=== PATIENT | male | born 2000 ===

== ENCOUNTER 2021-06-20 07:50 | Emergency (ER) | payer OTHER ==
[~2021-06-20] VITALS: Ht 177.8 cm; Wt 76.2 kg
[2021-06-20 07:52] VITALS: BP 132/85
[2021-06-20] MEDS ORDERED: IBUPROFEN 800 MG (MOTRIN) TAB PO STA (08:01)
[2021-06-20] MEDS ORDERED: LIDOCAINE 1% INJ 20 ML VIAL INJ STA (08:02)
--- NOTE | 2021-06-20 08:08 | ED Upper Extremity ---
General Chief Complaint: Laceration Stated Complaint: LT HAND INJ Source: patient Exam Limitations: no limitations History of Present Illness Date Seen by Provider: Jun 20, 2021 Time Seen by Provider: 07:53 Initial Comments 21 yo male presenting with complaint of injury to left forearm. he was using a jointer and got his sleeve caught as he was advancing a board. he has laceration to his wrist area with blood along his arm. He has intact movement and sensation to fingers and wrist. He is right hand dominant. He had his last tetanus when he was in high school. he has a history of migraine headaches and is prescribed Propranolol for those but takes it only as needed. He denies other injuries. Onset: just prior to arrival Severity: moderate Pain/Injury Location: left forearm, left wrist Method of Injury: other (caught in equipment) Modifying Factors: Worse With Movement Allergies and Home Medications Allergies Coded Allergies: Penicillins (Verified Allergy, Unknown, 06/20/21) Per family history Patient Home Medication List Home Medication List Reviewed: Yes Clindamycin HCl (Clindamycin HCl) 300 Mg Capsule, 300 MG PO TID Prescribed by: FAUSTINO RHODES on 06/20/21 0921 Review of Systems Constitutional: no symptoms reported EENTM: no symptoms reported Respiratory: no symptoms reported Cardiovascular: no symptoms reported Gastrointestinal: no symptoms reported Genitourinary: no symptoms reported Musculoskeletal: see HPI Skin: see HPI, other (laceration to left wrist) Psychiatric/Neurological: Denies Numbness, Denies Paresthesia, Denies Weakness Past Wygbxtn-Uxecyd-Zwybbv Hx Patient Social History Tobacco Use?: No Use of E-Cig and/or Vaping dev: No Substance use?: No Alcohol Use?: No Past Medical History Surgery/Hospitalization HX: Migraine Headaches Physical Exam Vital Signs Vital Signs - First Documented 06/20/21 07:52 Temp 36.6 Pulse 73 Resp 18 B/P (MAP) 132/85 (101) Pulse Ox 100 O2 Delivery Room Air Capillary Refill : Height, Weight, BMI Height: '" Weight: lbs. oz. kg; BMI Method: General Appearance: WD/WN, no apparent distress HEENT: PERRL/EOMI Cardiovascular: normal peripheral pulses Elbow/Forearm: normal ROM, Left, pain (around laceration), soft tissue tenderness (around laceration) Wrist: Yes normal ROM, Yes soft tissue tenderness Hand: normal inspection, non-tender, normal ROM Neurologic/Tendon: normal sensation, normal motor functions, normal tendon functions Neurologic/Psychiatric: no motor/sensory deficits, alert, normal mood/affect, oriented x 3 Skin: warm/dry, other (avulsion/laceration left wrist ulnar aspect) Procedures/Interventions Wound Location: Upper Extremities (left wrist) Wound Length (cm): 4.3 Wound's Depth, Shape: irregular, contused tissue, sub Q Wound Explored: contaminated Irrigated w/ Saline (ccs): 500 Betadine Prep?: Yes Anesthesia: 1% Lidocaine Volume Anesthetic (ccs): 6 Suture: Ethlion Suture Size: 4-0 Number of Sutures: 5 Layer Closure?: 1 Sterile Dressing Applied?: Yes Progress After obtaining verbal informed consent from the patient the wound was anesthetized with 1% plain lidocaine. Then using sterile water and Betadine the wound was irrigated and flushed. No foreign bodies were seen. Using 4-0 Ethilon the wound edges for approximated with 5 simple interrupted stitches. Patient tolerated procedure well without any immediate complication. Counseled on follow-up and return precautions. Will treat with clindamycin for antibiotic prophylaxis. Counseled on suture removal in 10 to 14 days. Clean dry dressing was applied with Javi bandage for pressure dressing. Wound Location: Upper Extremities (Left wrist/forearm) Wound Length (cm): 1.6 Wound's Depth, Shape: flap, sub Q Wound Explored: clean Irrigated w/ Saline (ccs): 500 Betadine Prep?: Yes Anesthesia: 1% Lidocaine Volume Anesthetic (ccs): 2 Suture: Ethlion Suture Size: 4-0 Number of Sutures: 3 Layer Closure?: 1 Sterile Dressing Applied?: Yes Progress After obtaining verbal informed consent from the patient the wound was anes thetized with 1% plain lidocaine. Then using sterile water and Betadine the wound was irrigated. There was no foreign body seen or visualized. The wound edges were approximated using 4-0 Ethilon. There were a total of 3 simple interrupted stitches placed with a 4-0 Ethilon. Patient tolerated procedure well without any immediate complication. Applied clean dry sterile dressing. Counseled on follow-up and return precautions. Advised to have stitches out in 10 to 14 days would be seen sooner if concern for infections. Treat with clindamycin for antibiotic prophylaxis. Wound Location: Upper Extremities (Left wrist and forearm) Wound Length (cm): 2.2 Wound's Depth, Shape: flap, contused tissue, sub Q Wound Explored: contaminated Irrigated w/ Saline (ccs): 500 Betadine Prep?: Yes Anesthesia: 1% Lidocaine Volume Anesthetic (ccs): 4 Suture: Ethlion Suture Size: 4-0 Number of Sutures: 4 Layer Closure?: 1 Sterile Dressing Applied?: Yes Progress After obtaining verbal informed consent from the patient the wound was anesthetized with 1% plain lidocaine. Then using sterile water and Betadine the wound was irrigated. There was no foreign body seen or visualized. The wound edges were approximated using 4-0 Ethilon. There were a total of 4 simple interrupted stitches placed with a 4-0 Ethilon. Patient tolerated procedure well without any immediate complication. Applied clean dry sterile dressing. Counseled on follow-up and return precautions. Advised to have stitches out in 10 to 14 days would be seen sooner if concern for infections. Treat with clindamycin for antibiotic prophylaxis. Progress/Results/Core Measures Results/Orders My Orders Orders - FAUSTINO RHODES MD Ibuprofen Tablet (Motrin Tablet) (06/20/21 08:01) Forearm 2 View Left (06/20/21 08:01) Lidocaine 1% Inj 20 Ml (Xylocaine 1% Inj (06/20/21 08:02) Suture Set At Bedside (06/20/21 08:02) Wound Dressing-Ed (06/20/21 08:02) Lidocaine 1% Inj 50 Ml (Xylocaine 1% Inj (06/20/21 08:19) Medications Given in ED Current Medications Medications Dose Ordered Sig/Claudia Route Start Time Stop Time Status Last Admin Dose Admin Lidocaine HCl 50 ml STK-MED ONCE .ROUTE 06/20/21 08:19 06/20/21 08:22 DC 06/20/21 08:24 50 ML Vital Signs/I&O 06/20/21 07:52 Temp 36.6 Pulse 73 Resp 18 B/P (MAP) 132/85 (101) Pulse Ox 100 O2 Delivery Room Air Progress Progress Note #1: Progress Note Order Ibuprofen for pain and inflammation. Clean wound and order xrays to check for bony injury or foreign body. Will clean wound and use lidocaine to help numb the wound and then use stitches to help repair the tissue. Progress Note #2: Progress Note No obvious fracture or foreign body seen on the x-rays. Wound was anesthetized with 1% plain lidocaine and then cleaned with Betadine and sterile water. Using 4-0 Ethilon the wound edges were approximated with a total of 12 simple interrupted stitches. Patient tolerated procedure well without any immediate complication. Since this does involve his jacket and possible foreign body material in the wound will cover with clindamycin antibiotic for prophylactic coverage. Patient states he is up-to-date on his tetanus booster. Counseled on using acetaminophen and ibuprofen if needed for pain. Suture removal in 10 to 14 days or be seen sooner if having concerns for possible infection. Diagnostic Imaging Diagonstic Imaging: Xray Plain Films/CT/US/NM/MRI: forearm Comments [facility] [place] NAME: BRYAN CABEZAS [facility] REC#: [id number] PT STATUS: REG ER : 2000 PHYSICIAN: FAUSTINO RHODES MD ADMIT DATE: 06/20/21/ER FS Draft Date of Exam:06/20/21 FOREARM 2 VIEW LEFT Indication: Left wrist injury and laceration. Time of Exam: 8:11 AM Two views of the left forearm were obtained. Alignment at the elbow and wrist is normal. There appears to be a soft tissue injury along the ulnar side of the wrist. No definite radiopaque soft tissue foreign body is seen. No acute bony abnormality is detected. IMPRESSION: Soft tissue injury of the wrist. No radiopaque foreign body or acute bony abnormality is detected. Dictated on workstation # [id number] Dict: 06/20/21824 Trans: 06/20/21829 [facility] [id number] Interpreted by: RICARDO CORTEZ MD Electronically signed by: Reviewed: Reviewed by Me Departure Impression Primary Impression: Laceration of left wrist without foreign body Qualified Codes: S61.512A - Laceration without foreign body of left wrist, initial encounter Additional Impression: Soft tissue avulsion Disposition: 01 HOME, SELF-CARE Condition: Stable Departure-Patient Inst. Decision time for Depature: 09:16 Referrals: ADA JONES DO (PCP) Primary Care Physician Patient Instructions: Wound Care ED, Laceration Repair With Stitches ED Add. Discharge Instructions: Keep wound clean and dry for next 24 hours. After that you may remove the dressing and bandages from this morning and clean with soap and water. Do not soak the wound as it may make the stitches and wound break open. You may reapply antibiotic ointment and keep wound covered with bandages until the stitches are removed in 10-14 days. Definitely have the wounds covered if it may get dirty Use ice pack for 10-15 minutes every few hours as needed to help limit pain, swelling and bruising. This will help the most in this first 48 hours. May take ibuprofen and acetaminophen if needed for pain. Take the full course of antibiotics to help prevent infection with the wounds. If you see redness streaking up the wrist/forearm, fever over 101 F, or have pus draining from the wounds then be seen right away as you would need a different antibiotic and may need IV antibiotics if it is getting infected. All discharge instructions reviewed with patient and/or family. Voiced understanding. Scripts Clindamycin HCl (Clindamycin HCl) 300 Mg Capsule 300 MG PO TID for wrist laceration for 7 Days, #21 CAP 0 Refills Prov: FAUSTINO RHODES MD 06/20/21 Work/School Note: School/Childcare Release, Date Seen in the Emergency Department: Jun 20, 2021 Time Dismissed from Emergency Department: 09:30 Return to School: Jun 23, 2021 Restrictions: No Restrictions Other Restrictions Listed Below: Keep wound clean and covered until stitches out in 10-14 days Work Release Form Date Seen in the Emergency Department: Jun 20, 2021 Return to Work: Jun 23, 2021 Other Restrictions Listed Below: Keep wound clean and covered until stitches out 10-14 days FAUSTINO RHODES MD Jun 20, 2021 08:08
[2021-06-20] MEDS ORDERED: LIDOCAINE 1% INJ 50 ML (XYLOCAINE) VIAL ONE (08:19)
--- NOTE | 2021-06-20 08:30 | Diagnostic Imaging Report ---
Indication: Left wrist injury and laceration. Time of Exam: 8:11 AM Two views of the left forearm were obtained. Alignment at the elbow and wrist is normal. There appears to be a soft tissue injury along the ulnar side of the wrist. No definite radiopaque soft tissue foreign body is seen. No acute bony abnormality is detected. IMPRESSION: Soft tissue injury of the wrist. No radiopaque foreign body or acute bony abnormality is detected. Dictated by: Dictated on workstation # [id number]
[2021-06-20] MEDS ORDERED: CLIN-144 PO (09:21)
== END 2021-06-20 09:30 | disposition home or self-care (01) ==
LOC: ER FS 07:53
DX: S61.512A Laceration without foreign body of left wrist, initial encounter (principal); M79.9 Soft tissue disorder, unspecified; W23.1XXA Caught, crushed, jammed, or pinched between stationary objects, initial encounter

== ENCOUNTER 2022-06-03 17:06 | Emergency (ER) | payer BC, OTHER ==
[~2022-06-03] VITALS: Ht 177 cm; Wt 77.0 kg
[~2022-06-03 17:06] MED LIST: CLIN-144 PO
[2022-06-03] MEDS ORDERED: IBUPROFEN 600 MG (MOTRIN) TAB PO ONE (17:15)
[2022-06-03 17:19] VITALS: BP 125/76
--- NOTE | 2022-06-03 17:19 | ED Lower Extremity ---
General Chief Complaint: Lower Extremity Stated Complaint: ANKLE SWOLLEN, BRUISED, TRIPPED DOWN THE STAIRS Source: patient Exam Limitations: no limitations History of Present Illness Date Seen by Provider: Jun 03, 2022 Time Seen by Provider: 17:09 Initial Comments 22-year-old male with no pertinent past medical history coming in due to right ankle pain after twisting it missing a step roughly 15 minutes prior to arrival. Having constant, throbbing pain worse with stepping on it, better with rest. Has not taken any meds for it as of yet. He has been able to put some weight on it and walk a little bit. Allergies and Home Medications Allergies Coded Allergies: Penicillins (Verified Allergy, Unknown, 06/20/21) Per family history Patient Home Medication List Home Medication List Reviewed: Yes Clindamycin HCl (Clindamycin HCl) 300 Mg Capsule, 300 MG PO TID Prescribed by: FAUSTINO RHODES on 06/20/21 09 Review of Systems Constitutional: No fever EENTM: no symptoms reported Cardiovascular: no symptoms reported Gastrointestinal: no symptoms reported Musculoskeletal: see HPI Skin: no symptoms reported Psychiatric/Neurological: No Symptoms Reported Past Nmfkmka-Dnqrmb-Gwjqtg Hx Patient Social History Tobacco Use?: No Substance use?: No Alcohol Use?: No Past Medical History Surgery/Hospitalization HX: Migraine Headaches Surgeries: No Physical Exam Vital Signs Vital Signs - First Documented 06/03/22 17:19 Temp 36.8 Pulse 77 Resp 16 B/P (MAP) 125/76 (92) Pulse Ox 96 O2 Delivery Room Air Capillary Refill : Height, Weight, BMI Height: '" Weight: lbs. oz. kg; 24.00 BMI Method: General Appearance: WD/WN, no apparent distress HEENT: PERRL/EOMI, normal ENT inspection, pharynx normal Neck: non-tender, full range of motion, supple, normal inspection Cardiovascular: regular rate, rhythm, no edema, no murmur Respiratory: chest non-tender, lungs clear, normal breath sounds, no respiratory distress, no accessory muscle use Gastrointestinal: normal bowel sounds Back: normal inspection Knees: bilateral knee non-tender, bilateral knee normal inspection, bilateral knee normal range of motion, bilateral knee no evidence of injury Ankles: left ankle non-tender, left ankle normal inspection, left ankle normal range of motion, left ankle no evidence of injury; right ankle pain, right ankle soft tissue tenderness, right ankle swelling, right ankle other (Pain along the ATFL, no malleoli tenderness, no Lisfranc tenderness, no pain at the base of the fifth metatarsal, no pain at the proximal fibula) Neurologic/Tendon: normal sensation, normal motor functions, normal tendon functions Neurologic/Psychiatric: no motor/sensory deficits, alert, normal mood/affect Skin: normal color, warm/dry Procedures/Interventions Suture Size: 4-0 Progress/Results/Core Measures Results/Orders My Orders Orders - RUTHANN PARHAM MD Ibuprofen Tablet (Motrin Tablet) (06/03/22 17:15) Ankle 3 View Right (06/03/22 17:12) Medications Given in ED Current Medications Medications Dose Ordered Sig/Claudia Route Start Time Stop Time Status Last Admin Dose Admin Ibuprofen 600 mg ONCE ONCE PO 06/03/22 17:15 06/03/22 17:16 DC 06/03/22 17:17 600 MG Vital Signs/I&O 06/03/22 17:19 Temp 36.8 Pulse 77 Resp 16 B/P (MAP) 125/76 (92) Pulse Ox 96 O2 Delivery Room Air Progress Progress Note : Progress Note 22-year-old male with above history coming in due to right lateral ankle pain after twisting it. ABCs were intact and vitals were stable on presentation. Physical exam with mostly right ATFL tenderness. No significant bony tenderness but does have some swelling. X-ray ordered and interpreted by me showing no fracture or dislocation. Given ibuprofen here for pain. We will give him an Aircast and have him follow-up with orthopedics as an outpatient. He was then discharged home in stable condition with strict return precautions. Diagnostic Imaging Diagonstic Imaging: Xray (ankle) Comments NAME: BRYAN CABEZAS [facility] REC#: [id number] PT STATUS: REG ER : 2000 PHYSICIAN: RUTHANN PARHAM MD ADMIT DATE: 06/03/22/ER FS Draft Date of Exam:06/03/22 ANKLE 3 VIEW RIGHT INDICATION: Right ankle pain AP, oblique, and lateral views of the right ankle are obtained. No fracture or acute bony abnormality seen. Joint spaces are unremarkable. IMPRESSION: Negative right ankle. Dictated on workstation # [id number] Dict: 06/03/22 1727 Trans: 06/03/22 1730 [facility] [id number] Interpreted by: MAKAYLA DODGE MD Electronically signed by: Departure Impression Primary Impression: Ankle sprain Qualified Codes: S93.491A - Sprain of other ligament of right ankle, initial encounter Disposition: 01 HOME, SELF-CARE Condition: Stable Departure-Patient Inst. Decision time for Depature: 17:30 Referrals: ADA JONES DO (PCP) Primary Care Physician DORY MCCALLUM Patient Instructions: Ankle Sprain ED Add. Discharge Instructions: Fortunately nothing is broken on x-ray. You do have an ankle sprain in one of the most common areas. Keep it wrapped and elevated to help the swelling. Take ibuprofen 600 mg every 6 hours as needed for pain as well as to help with the inflammation. Ice it a few times a day for the next couple of days. Follow-up with Abdifatah Mccallum in [facility] if its not improving in the next couple of weeks. Work/School Note: School/Childcare Release, Date Seen in the Emergency Department: Jun 03, 2022 Time Dismissed from Emergency Department: 17:19 Return to School: Jun 04, 2022 Restrictions: No PE-Until Released, No Sports-Until Released Work Release Form Date Seen in the Emergency Department: Jun 03, 2022 Return to Work: Jun 06, 2022 Restrictions: No Restrictions RUTHANN PARHAM MD Jun 03, 2022 17:19
--- NOTE | 2022-06-03 17:30 | Diagnostic Imaging Report ---
INDICATION: Right ankle pain AP, oblique, and lateral views of the right ankle are obtained. No fracture or acute bony abnormality seen. Joint spaces are unremarkable. IMPRESSION: Negative right ankle. Dictated by: Dictated on workstation # [id number]
== END 2022-06-03 17:35 | disposition home or self-care (01) ==
LOC: EDUNIT# 17:06 → ER FS 17:09
DX: S93.401A Sprain of unspecified ligament of right ankle, initial encounter (principal); X50.1XXA Overexertion from prolonged static or awkward postures, initial encounter
CPT/HCPCS: 73610; 99283